=== PATIENT | female | born 1980 | race Caucasian/White ===

== ENCOUNTER 2017-05-12 12:44 | Emergency (ER) | payer OTHER ==
[~2017-05-12] VITALS: Ht 157.5 cm; Wt 64.6 kg
[2017-05-12] MEDS ORDERED: SODIUM CHLORIDE FLUSH 10ML SYR IVF ONE (14:00)
[2017-05-12] MEDS ORDERED: ONDANSETRON 2MG/ML, 2ML IVPush ONE (14:00)
[2017-05-12] MEDS ORDERED: FAMOTIDINE 20 MG/2 ML IVP ONE (14:00)
[2017-05-12] MEDS ORDERED: SODIUM CHLORIDE 0.9% 1,000ML IVBOLUS ONE (14:00)
[2017-05-12 14:12] LABS: BASOPHILS % (AUTO) 0 % (0-1); EOSINOPHILS # (AUTO) 0.06 x10^3/uL (0-0.4); EOSINOPHILS % (AUTO) 1 % (1-7); LYMPHOCYTES # (AUTO) 1.61 x10^3/uL (1-3.4); LYMPHOCYTES % (AUTO) 19 % (22-44); MD NO; MEAN CORPUSCULAR HEMOGLOBIN 25.6 pg (27.0-34.8); MEAN CORPUSCULAR HGB CONC 32.6 g/dL (32.4-35.8); MEAN CORPUSCULAR VOLUME 78.6 fL (80-100); MEAN PLATELET VOLUME 6.4 fL (7.4-10.4); MONOCYTES # (AUTO) 0.58 x10^3/uL (0.2-0.8); MONOCYTES % (AUTO) 7 % (2-9); NEUTROPHILS # (AUTO) 6.25 x10^3/uL (1.8-6.8); NEUTROPHILS % (AUTO) 74 % (42-75); PLATELET COUNT 678 x10^3/uL (130-400); RED BLOOD COUNT 4.34 x10^6/uL (3.82-5.3)
[2017-05-12 14:21] LABS: ALANINE AMINOTRANSFERASE 59 U/L (12-78); ALBUMIN 3.9 g/dL (3.4-5.0); ANION GAP 6 mmol/L (5-15); CALCIUM 7.9 mg/dL (8.5-10.1); CHLORIDE 109 mmol/L (98-107); CREATININE 0.69 mg/dL (0.55-1.02)
[2017-05-12 14:25] LABS: ALKALINE PHOSPHATASE 106 U/L (45-117); BILIRUBIN,TOTAL 0.3 mg/dL (0.2-1.0); TOTAL PROTEIN 8.1 g/dL (6.4-8.2)
[2017-05-12] MEDS ORDERED: ONDANSETRON 2MG/ML, 2ML ONE (15:01)
[2017-05-12] MEDS ORDERED: FAMOTIDINE 20 MG/2 ML ONE (15:01)
[2017-05-12 15:14] LABS: MICROSCOPIC NOT IND
[2017-05-12 15:27] LABS: CULTURE INDICATED? NO
[2017-05-12] MEDS ORDERED: LORazepam 1MG TABLET ONE (15:47)
[2017-05-12] MEDS ORDERED: LORazepam 1MG TABLET PO ONE (16:00)
[2017-05-12 16:38] VITALS: BP 106/67
== END 2017-05-12 16:44 | disposition home or self-care (01) ==
LOC: ED 16:38
DX: N83.201 Unspecified ovarian cyst, right side (principal); Z87.442 Personal history of urinary calculi
CPT/HCPCS: 36415; 74176; 80053; 81003; 83690; 84703; 85025; 96361; 96374; 96375; 99285; J2405; J7030; S0028

== ENCOUNTER 2017-05-12 22:45 | Emergency (ER) | payer OTHER ==
[~2017-05-12] VITALS: Ht 157.5 cm; Wt 65.2 kg
[2017-05-12 22:56] VITALS: BP 120/85
[2017-05-12] MEDS ORDERED: HYDROcodone/APAP 5/325 TABLET PO ONE (23:30)
[2017-05-12] MEDS ORDERED: ZIPRASIDONE 20 MG INJ IM ONE ×2 (23:30→23:31)
[2017-05-12] MEDS ORDERED: HYDROcodone/APAP 5/325 TABLET ONE (23:32)
== END 2017-05-13 00:10 | disposition home or self-care (01) ==
LOC: ED 23:57
DX: N83.201 Unspecified ovarian cyst, right side (principal)
CPT/HCPCS: 96372; 99283; J3486